=== PATIENT | male | born 1990 | race Caucasian/White ===

== ENCOUNTER 2018-09-20 22:08 | Emergency (ER) | payer OTHER ==
[~2018-09-20] VITALS: Ht 177.8 cm; Wt 99.2 kg
[2018-09-20 22:22] VITALS: Ht 177.8 cm; Wt 99.2 kg
[2018-09-20] MEDS ORDERED: IBUPROFEN 600 MG TAB PO ONE (23:00)
[2018-09-21 00:56] VITALS: BP 132/77; PULSE 77; RESP 16
--- NOTE | 2018-09-21 05:25 | ERD ---
ER Documentation Chief Complaint Chief Complaint L eyelid lac p basketball game today. no active bleed; vision OK HPI This is a 28-year-old male presents to the emergency department complaining of laceration to his left upper eyelid which she sustained at 9 PM today while playing basketball at the gym. He reports associated pain which is constant and rated 6/10 in severity. He took no medication for relief of symptoms. He denies any changes to his vision, headache, or other symptoms at this time. His tetanus is up-to-date. ROS All systems reviewed and are negative except as per history of present illness. Allergies Allergies: Coded Allergies: Sulfa (Sulfonamide Antibiotics) (Verified Allergy, Unknown, 09/20/18) PMhx/Soc History of Surgery: Yes (LEFT KNBEE ACL SX.) Anesthesia Reaction: No Hx Neurological Disorder: No Hx Respiratory Disorders: No Hx Cardiac Disorders: No Hx Psychiatric Problems: No Hx Miscellaneous Medical Probl: No Hx Alcohol Use: Yes Hx Substance Use: No Hx Tobacco Use: Yes Smoking Status: Current every day smoker FmHx Family History: No diabetes Physical Exam Vitals Vital Signs Date Temp Pulse Resp B/P (MAP) Pulse Ox O2 O2 Flow FiO2 Time Delivery Rate 09/21/18 98.3 77 16 132/77 100 Room Air 00:56 (95) 09/20/18 98.7 83 16 170/99 100 22:22 (122) Physical Exam Const: No acute distress Head: Atraumatic Eyes: Normal Conjunctiva. There is an approximate 1 cm laceration noted to the left upper eyelid, extraocular movements are intact bilaterally. ENT: Normal External Ears, Nose and Mouth. Neck: Full range of motion. No meningismus. Resp: No respiratory distress. Skin: No petechiae or rashes Back: No midline or flank tenderness Ext: No cyanosis, or edema Neur: Awake and alert Psych: Normal Mood and Affect Results 24 hrs Current Medications Medications Dose Sig/Oral Start Time Status Last (Trade) Ordered Route PRN Stop Time Admin Dose Reason Admin Ibuprofen 600 mg ONCE ONCE 09/20/18 DC 09/20/18 (Motrin) PO 23:00 09/20/18 23:01 23:01 Procedures/MDM 28-year-old male presents to the emergency department for laceration to the left upper eyelid. Patient was given full risks, benefits, alternatives for laceration repair with Dermabond and he gave verbal consent. I also ordered CT of the orbital bones, however the patient would like to defer this study. He signed an AGAINST MEDICAL ADVICE form for this. Laceration Repair by me: Anesthesia: None Location: Left upper eyelid Tendon/Joint/Nerves: No injury Foreign body: None detected after copious irrigation and exploration Technique: Tissue adhesive Complexity: No subcutaneous sutures/mucosal repair/edge excision Post Closure Length: 1cm Patient's bleeding was easily controlled in the department and there is no indication of anemia. No evidence of compartment syndrome, neurologic injury, vascular injury, open joint, tendon laceration, or foreign body. Patient is appropriate for outpatient follow up. 48 hour wound check. Scar minimization instructions given. No evidence of life-threatening pathology at time of discharge. Pt/family in agreement with discharge plan/diagnosis. Pt/family advised to return immediately with any new or worsening symptoms. Follow-up with primary care physician within the next 1-2 days. Patient's blood pressure was elevated (>120/80) but appears stable without evidence of hypertension emergency or urgency. The patient is to follow-up and pursue outpatient monitoring and therapy with their primary care physician within 1 week and return immediately if they have any new, worsening, or concerning symptoms. Disclaimer: Inadvertent spelling and grammatical errors are likely due to EHR/dictation software use and do not reflect on the overall quality of patient care. Also, please note that the electronic time recorded on this note does not necessarily reflect the actual time of the patient encounter. Departure Diagnosis: Primary Impression: Left eyelid laceration Encounter type: initial encounter Qualified Codes: S01.112A - Laceration without foreign body of left eyelid and periocular area, initial encounter Condition: Fair Patient Instructions: Laceration, All Referrals: [facility] YOU HAVE RECEIVED A MEDICAL SCREENING EXAM AND THE RESULTS INDICATE THAT YOU DO NOT HAVE A CONDITION THAT REQUIRES URGENT TREATMENT IN THE EMERGENCY DEPARTMENT. FURTHER EVALUATION AND TREATMENT OF YOUR CONDITION CAN WAIT UNTIL YOU ARE SEEN IN YOUR DOCTORS OFFICE WITHIN THE NEXT 1-2 DAYS. IT IS YOUR RESPONSIBILITY TO MAKE AN APPOINTMENT FOR FOLOW-UP CARE. IF YOU HAVE A PRIMARY DOCTOR --you should call your primary doctor and schedule an appointment IF YOU DO NOT HAVE A PRIMARY DOCTOR YOU CAN CALL OUR PHYSICIAN REFERRAL HOTLINE AT IF YOU CAN NOT AFFORD TO SEE A PHYSICIAN YOU CAN CHOSE FROM THE FOLLOWING [facility] [address] [facility] [address] [facility] [place] [address] [facility]. [facility] [address] [facility] [facility] [address] [facility] [address] [facility]. [facility] [address] Additional Instructions: Call your primary care doctor TOMORROW for an appointment during the next 1-2 days.See the doctor sooner or return here if your condition worsens before your appointment time. SHEFALI KOHLI PA-C Sep 21, 2018 05:25
== END 2018-09-21 00:57 | disposition home or self-care (01) ==
LOC: FTE 22:08
DX: S01.112A Laceration without foreign body of left eyelid and periocular area, initial encounter (principal); F17.210 Nicotine dependence, cigarettes, uncomplicated; W26.8XXA Contact with other sharp object(s), not elsewhere classified, initial encounter; Y92.89 Other specified places as the place of occurrence of the external cause